=== PATIENT | male | born 1995 | race Two or more races ===

== ENCOUNTER 2018-03-06 23:44 | Inpatient (IN) | payer MEDICAID ==
[~2018-03-06] VITALS: Ht 160 cm; Wt 66.8 kg
--- NOTE | 2018-03-07 00:05 | NUR ---
Pt. ambulated into ED w/ c/o RUQ pain, N/V reported, abdomen soft/round/non-distended, tender to palpation, BS active x 4 quadrants,
[2018-03-07] MEDS ORDERED: IV NORMAL SALINE 1000 ML BAG IV ONE ×2 (00:15→01:15)
[2018-03-07] MEDS ORDERED: KETOROLAC TROMETHAMINE 15 MG INJ IV ONE (00:15)
[2018-03-07] MEDS ORDERED: PANTOPRAZOLE SODIUM 40 MG VIAL IV ONE (00:15)
[2018-03-07] MEDS ORDERED: ONDANSETRON 4 MG/2 ML VIAL IV ONE (00:15)
[2018-03-07 00:19] LABS: BASOPHILS # (AUTO) 0.1 K/uL (0.0-8.0); BASOPHILS % (AUTO) 0.6 % (0.0-2.0); EOSINOPHILS % (AUTO) 0.1 % (0.0-7.0); HEMATOCRIT 47.4 % (36.7-47.1); HEMOGLOBIN 16.2 g/dL (12.5-16.3); LYMPHOCYTES # (AUTO) 0.7 K/uL (20.0-40.0); LYMPHOCYTES % (AUTO) 6.2 % (20.5-51.5); MEAN CORPUSCULAR HEMOGLOBIN 29.3 uug (23.8-33.4); MEAN CORPUSCULAR HGB CONC 34 g/dL (32.5-36.3); MEAN CORPUSCULAR VOLUME 85.8 fL (73.0-96.2); MONOCYTES # (AUTO) 0.7 K/uL (2.0-10.0); MONOCYTES % (AUTO) 5.9 % (0.0-11.0); NEUTROPHILS # (AUTO) 9.8 K/uL (1.8-8.9); NEUTROPHILS % (AUTO) 87.2 % (38.5-71.5); PLATELET COUNT (AUTO) 235 K/uL (152-348); RED BLOOD CELL COUNT(AUTO) 5.52 MIL/uL (4.06-5.63); WHITE BLOOD COUNT (AUTO) 11.2 K/uL (3.6-10.2)
[2018-03-07] MEDS ORDERED: ONDANSETRON 4 MG/2 ML VIAL ONE (00:20)
[2018-03-07] MEDS ORDERED: PANTOPRAZOLE SODIUM 40 MG VIAL ONE (00:20)
[2018-03-07] MEDS ORDERED: KETOROLAC TROMETHAMINE 30 MG INJ ONE (00:20)
[2018-03-07 00:36] LABS: BILIRUBIN,DIRECT 0.2 mg/dL (0.0-0.2); BILIRUBIN,TOTAL 0.8 mg/dL (0.2-1.0); CREATININE 1.9 mg/dL (0.6-1.3); POTASSIUM 3.3 mmol/L (3.5-5.1); TOTAL PROTEIN, SERUM 8.6 g/dL (6.4-8.2)
[2018-03-07] MEDS ORDERED: MORPHINE SULFATE 4 MG/1 ML DISP.SYRIN ONE (00:38)
[2018-03-07] MEDS ORDERED: MORPHINE SULFATE 4 MG/1 ML DISP.SYRIN IV ONE (00:45)
[2018-03-07 00:54] LABS: *BILIRUBIN,URIN NEGATIVE (NEGATIVE); *BLOOD, URINE 1+ (NEGATIVE); *CLARITY,URINE TURBID (CLEAR); *KETONES,URINE NEGATIVE (NEGATIVE); *PROTEIN,URINE 1+ (NEGATIVE); *UROBILINOGEN,URINE 0.2 E.U./dl (NORMAL); LEUKOCYTE ESTERASE ,URINE 3+ (NEGATIVE); NITRITE, URINE NEGATIVE (NEGATIVE); PH,URINE 7.5 (5.0-8.0); UGLUCOSE NEGATIVE (NEGATIVE)
[2018-03-07 00:58] LABS: *COLOR,URINE STRAW (YELLOW)
[2018-03-07 00:59] LABS: BACTERIA,URINE FEW /HPF (NONE SEEN); SQUAMOUS EPITHELIAL CELL,UR NONE SEEN /HPF (NONE SEEN); WBC,URINE TNTC /HPF (0-3)
[2018-03-07] MEDS ORDERED: CEFTRIAXONE 1 G VIAL ONE (01:14)
[2018-03-07] MEDS ORDERED: CEFTRIAXONE 1 G in IV DEXTROSE 5% 50 ML IV ONE (01:15)
--- NOTE | 2018-03-07 02:31 | NUR ---
Pt. taken off unit for CT by Govenlock Green.
--- NOTE | 2018-03-07 02:43 | NUR ---
Pt. back in room from [place]
--- NOTE | 2018-03-07 03:27 | NUR ---
Call placed to [facility] speaking with DANIEL.
[2018-03-07] MEDS ORDERED: LEVOFLOXACIN 500 MG/D5W 100ML PIGGYBACK IV ONE (03:30)
[2018-03-07] MEDS ORDERED: LEVOFLOXACIN 500 MG/D5W 100 ML ONE (03:36)
[2018-03-07] MEDS ORDERED: HYDROCODONE/APAP 5-325MG TABLET PO PRN (03:45)
[2018-03-07] MEDS ORDERED: MAGNESIUM HYDROXIDE 30 ML LIQUID UDC PO PRN (03:45)
[2018-03-07] MEDS ORDERED: TEMAZEPAM 15 MG CAPSULE PO PRN (03:45)
[2018-03-07] MEDS ORDERED: HYDROCODONE/APAP 10-325 MG TABLET PO PRN (03:45)
[2018-03-07] MEDS ORDERED: ONDANSETRON 4 MG/2 ML VIAL IV PRN (03:45)
[2018-03-07] MEDS ORDERED: ACETAMINOPHEN 325 MG TABLET PO PRN (03:45)
--- NOTE | 2018-03-07 04:33 | NUR ---
Gave report to Jn
--- NOTE | 2018-03-07 05:25 | NUR ---
Pt. transferred off unit and taken to room 203, no acute distress, VSS
--- NOTE | 2018-03-07 05:25 | NUR ---
Admitted a 22 years old male with diagnosis of UTI and ARF. Patient AAOX4. Japanese speaking, can understand and speak some Angolan. In no acute distress. Denies any abdominal pain at this time. Denies any SOB. IV site on left AC intact and patent. IVF started. Routine admission care done. Plan of care initiated. Safety measure initiated and call bobby within reach.
[2018-03-07 05:30] VITALS: BP 120/64
[2018-03-07] MEDS: IV NS 1000 ML 1,000 ML IV PRN ×2 (05:35→17:10)
[2018-03-07] MEDS: PANTOPRAZOLE SODIUM 40 MG TABLET.DR PO SCH (06:20)
[2018-03-07] MEDS ORDERED: POTASSIUM CHLORIDE 20 MEQ TAB.PRT.SR PO ONE (10:15)
[2018-03-07 11:11] VITALS: BP 98/50
[2018-03-07 14:43] LABS: *BILIRUBIN,URIN NEGATIVE (NEGATIVE); *BLOOD, URINE 1+ (NEGATIVE); *CLARITY,URINE SLIGHTLY CLOUDY (CLEAR); *COLOR,URINE YELLOW (YELLOW); *KETONES,URINE NEGATIVE (NEGATIVE); *PROTEIN,URINE 1+ (NEGATIVE); *UROBILINOGEN,URINE 0.2 E.U./dl (NORMAL); LEUKOCYTE ESTERASE ,URINE 3+ (NEGATIVE); NITRITE, URINE NEGATIVE (NEGATIVE); UGLUCOSE NEGATIVE (NEGATIVE)
[2018-03-07 14:57] LABS: BACTERIA,URINE FEW /HPF (NONE SEEN); SQUAMOUS EPITHELIAL CELL,UR FEW /HPF (NONE SEEN); WBC,URINE TNTC /HPF (0-3)
[2018-03-07 15:00] VITALS: BP 143/68
[2018-03-07 15:26] LABS: *CREATININE,URINE 55.5 mg/dL (30-125); *URINE TOTAL PROTEIN RANDOM 45.8 mg/dL (<150/24HR)
[2018-03-07 19:00] VITALS: BP 106/67
--- NOTE | 2018-03-07 19:50 | NUR ---
RECEIVED PATIENT AWAKE IN BED. PATIENT IS A/O X4. DENIES PAIN OR DISCOMFORT. NO RESP. DISTRESS NOTED. IVF INFUSING WELL TO LEFT AC #20 GAUGE. VSS. CALL LIGHT IN REACH. ALL NEEDS ATTENDED. WILL CONTINUE TO MONITOR AND ASSESS.
--- NOTE | 2018-03-07 20:30 | NUR ---
BLADDER SCANNER DONE ORDERED PER ANDRESSA. HELIOTHERAPIST. ZERO RESIDUAL NOTED AFTER POST-VOID. WILL CONTINUE TO MONITOR.
[2018-03-08] MEDS ORDERED: CEFTRIAXONE 1 G in IV DEXTROSE 5% 50 ML IV SCH ×2
[2018-03-08 04:00] VITALS: BP 102/58
[2018-03-08] MEDS: IV NS 1000 ML 1,000 ML IV PRN (04:23)
--- NOTE | 2018-03-08 05:00 | NUR ---
PATIENT ASLEEP IN BED. EASILY AROUSABLE. SLEPT WELL THROUGHOUT THE NIGHT. IVF INFUSING WELL. DENIES PAIN. NO RESP. DISTRESS NOTED. VS WNL. NO RESIDUAL NOTED WITH BLADDER SCANNER. CALL LIGHT IN REACH. ALL NEEDS ATTENDED. WILL CONTINUE TO MONITOR AND ASSESS.
[2018-03-08] MEDS: PANTOPRAZOLE SODIUM 40 MG TABLET.DR PO SCH (06:04)
[2018-03-08 07:14] LABS: BILIRUBIN,TOTAL 0.1 mg/dL (0.2-1.0); CREATININE 2.1 mg/dL (0.6-1.3); MAGNESIUM 1.7 mg/dL (1.8-2.4); PHOSPHOROUS 3.2 mg/dL (2.5-4.9); TOTAL PROTEIN, SERUM 6.1 g/dL (6.4-8.2)
[2018-03-08 07:21] LABS: POTASSIUM 3.7 mmol/L (3.5-5.1)
[2018-03-08 07:22] LABS: BASOPHILS # (AUTO) 0.1 K/uL (0.0-8.0); EOSINOPHILS # (AUTO) 0.1 K/uL (0.0-0.7)
[2018-03-08 07:28] LABS: BASOPHILS % (AUTO) 0.8 % (0.0-2.0); EOSINOPHILS % (AUTO) 1.3 % (0.0-7.0); LYMPHOCYTES # (AUTO) 2.2 K/uL (20.0-40.0); LYMPHOCYTES % (AUTO) 26.4 % (20.5-51.5); MEAN CORPUSCULAR HEMOGLOBIN 29.4 uug (23.8-33.4); MEAN CORPUSCULAR HGB CONC 33 g/dL (32.5-36.3); MEAN CORPUSCULAR VOLUME 88.6 fL (73.0-96.2); MONOCYTES % (AUTO) 12.1 % (0.0-11.0); NEUTROPHILS % (AUTO) 59.4 % (38.5-71.5); PLATELET COUNT (AUTO) 189 K/uL (152-348); RED BLOOD CELL COUNT(AUTO) 4.56 MIL/uL (4.06-5.63)
--- NOTE | 2018-03-08 07:30 | NUR ---
Received patient asleep in bed, easily arousable, not in any form of distress. With ongoing IVF at left antecubital iv access, infusing well. No complaints of abdominal pain at this time, will continue to monitor. Bed in low position, side rails up x 2, call light within reach. Ensured patient safety and comfort.
[2018-03-08 07:36] LABS: HEMATOCRIT 40.4 % (36.7-47.1); HEMOGLOBIN 13.4 g/dL (12.5-16.3); WHITE BLOOD COUNT (AUTO) 8.5 K/uL (3.6-10.2)
--- NOTE | 2018-03-08 09:57 | NUR ---
Post void residual = 141mL, no complaints of dysuria, patient feels like he fully emptied his bladder. No flank pain.
[2018-03-08 11:00] VITALS: BP 120/82
--- NOTE | 2018-03-08 11:00 | NUR ---
Noted patient for discharge today. IV access removed with complete catheter tip. Awaiting dietary consult for diet specific for renal stone. Awaiting pharmacy consult as well for home medications. [employer]i manager payroll provided patient with instructions on how to schedule follow up appointment with urologist.
--- NOTE | 2018-03-08 11:30 | NUR ---
Patient given instructions on scheduling follow up appointment, patient verbalized understanding. Patient sent home with vasiliy Baldwin via private car.
[2018-03-08] MEDS ORDERED: MAGNESIUM OXIDE 400 MG TABLET PO ONE ×2 (11:45)
[2018-03-08] MEDS ORDERED: CIPR500T5 PO (12:30)
[2018-03-09 12:07] LABS: A/G RATIO 1.2 (0.7-1.7); ALBUMIN 3.1 g/dL (2.9-4.4); ALPHA-1-GLOBULIN 0.2 g/dL (0.0-0.4); ALPHA-2-GLOBULIN 0.7 g/dL (0.4-1.0); BETA GLOBULIN 0.9 g/dL (0.7-1.3); GAMMA GLOBULIN 0.8 g/dL (0.4-1.8); GLOBULIN, TOTAL 2.6 g/dL (2.2-3.9); M-SPIKE Not Observed g/dL (Not Observed)
== END 2018-03-08 13:40 | disposition home or self-care (01) | DRG 463 ==
LOC: ER 23:46 → MED 03-07 04:58
PROVIDERS: ADMIT Nurse Practitioner Acute Care; ATTEND Registered Nurse
DX: N39.0 Urinary tract infection, site not specified (principal); N17.0 Acute kidney failure with tubular necrosis; E87.6 Hypokalemia; Q61.3 Polycystic kidney, unspecified; N13.2 Hydronephrosis with renal and ureteral calculous obstruction; N31.9 Neuromuscular dysfunction of bladder, unspecified; N21.0 Calculus in bladder; E66.9 Obesity, unspecified; Z68.26 Body mass index [BMI] 26.0-26.9, adult; B96.89 Other specified bacterial agents as the cause of diseases classified elsewhere; N18.9 Chronic kidney disease, unspecified; N32.3 Diverticulum of bladder
CPT/HCPCS: 36415; 71045; 76770; 83605; 83690; 83735; 83970; 84100; 84155; 84156; 84165; 84300; 85025; 85730; 87040; 87077; 87086; A4663; C9113; G0378; J0696; J1885; J1956; J2270; J2405; J7030; J7060